=== PATIENT | male | born 1990 | race Hispanic/Latino ===

== ENCOUNTER 2022-07-30 11:32 | Emergency (ER) | payer OTHER, SELFPAY ==
--- NOTE | ~2022-07-30 | CT_ITS ---
EXAMINATION: CT abdomen pelvis w con INDICATION: Upper abdominal pain and vomiting TECHNIQUE: Computed tomographic images of the abdomen and pelvis were obtained after the administrati on of 100 cc of Omnipaque 350 intravenous contrast. The dose-length product (DLP) was 354.04 mGy-cm. Automated exposure control and iterative reconstruction technique were employed. COMPARISON: None available FINDINGS: The lung bases are clear. The heart size is normal. The liver, spleen, gallbladder, and adr enal glands are normal. Punctate calcification in the tail of the pancreas is consistent with chronic pancreatitis. The left kidney is unremarkable. A 4 mm hypoattenuating lesion of the left kidney is t oo small to characterize but likely represents a cyst. No pathologically enlarged abdominal or pelvic lymph nodes are identified. There is no free intraperitoneal gas or evidence of bowel obstruction. T he appendix is normal. IMPRESSION: 1. No CT correlate for the patient's symptoms. Reviewed, dictated and finalized at location B.
[2022-07-30 11:39] VITALS: BP 143/101; PULSE 84; RESP 16; TEMP 36.9; O2SAT 99
--- NOTE | 2022-07-30 11:45 | ED.NAVMDI ---
HPI - Nausea/Vomiting/Diarrhea General Chief complaint: Nausea/Vomiting/Diarrhea Stated complaint: Vomiting for the past 48 hours Time Seen by Provider: 07/30/22 11:33 History of Present Illness HPI Narrative: 32-year-old male presents the emergency room for evaluation of upper abdominal pain that has been present for 2 days. Patient states that he has been experiencing multiple episodes of nonbilious nonbloody vomiting for 48 hours. Denies any radiating pain. Also admits to heavy alcohol use over the weekend. States he was running a fever with T-max of 90.8, even though his thermostat is old . Patient denies any diarrhea or constipation. Describes his abdominal pain as a throbbing sensation. Related Data Allergies Allergy/AdvReac Type Severity Reaction Status Date / Time No Known Allergies Allergy Verified 07/30/22 11:33 Review of Systems Review of Systems: CONSTITUTIONAL: Denies fever, chills, or sweats. EYES: Denies visual changes, redness, or discharge. ENT: Denies rhinorrhea, congestion, sore throat, or otalgia. CARDIOVASCULAR: Denies chest pain, palpitations, or edema. RESPIRATORY: Denies cough or dyspnea. GASTROINTESTINAL: Reports abdominal pain, nausea, vomiting GENITOURINARY: Denies dysuria or hematuria. SKIN: Denies rash or itching. MUSCULOSKELETAL: Denies back pain, joint pain, or myalgia. NEUROLOGIC: Denies headache, numbness, dizziness, or weakness. PSYCHIATRIC: Denies anxiety or depression. Exam Narrative: GENERAL: Well-appearing, well-nourished, no physical limitations, and in no acute distress. HEAD: Normocephalic, atraumatic. EYES: Conjunctivae normal, PERRLA and EOMI. CHEST: Clear to auscultation. No respiratory distress. No wheezes rales or rhonchi. HEART: Regular rate and rhythm. No murmur heard. Normal peripheral pulses. ABDOMEN: Soft, epigastric and periumbilical tenderness, nondistended, normal active bowel sounds. BACK: No CVA tenderness EXTREMITIES: Normal range of motion. No edema. No clubbing or cyanosis SKIN: Warm, dry, no rash. No noted wounds NEURO: No focal deficits. Alert and oriented x3. MAEW. CN's II-XI intact bilaterally, normal gait PSYCH: Cooperative. Normal mood and affect. Course Vital Signs Vital signs: Vital Signs Temperature 36.9 C 07/30/22 11:39 Pulse Rate 84 07/30/22 11:39 Respiratory Rate 16 07/30/22 11:39 Blood Pressure 143/101 H 07/30/22 11:39 Pulse Oximetry 99 07/30/22 11:39 Oxygen Delivery Room Air 07/30/22 11:39 Temperature 36.9 C 07/30/22 11:39 Pulse Rate 84 07/30/22 11:39 Respiratory Rate 16 07/30/22 11:39 Blood Pressure 143/101 H 07/30/22 11:39 Pulse Oximetry 99 07/30/22 11:39 Oxygen Delivery Room Air 07/30/22 11:39 MDM - Nausea/Vomiting/Diarrhea Lab Data Result diagrams: 07/30/22 11:50 07/30/22 11:50 Labs: Lab Results 07/30/22 07/30/22 Range/Units 11:50 11:50 WBC 13.6 H (4.5-10.0) K/mm3 RBC 4.84 (4.6-6.20) M/mm3 Hgb 16.2 (14.0-18.0) g/dL Hct 45.8 (42.0-52.0) % MCV 94.6 (80-100) fl MCH 33.5 (26-34) pg MCHC 35.4 (32-36) g/dl RDW 11.9 (11.5-14.5) % Plt Count 298 (150-375) k/mm3 MPV 10.1 (7.4-10.4) fl Immature Gran % (Auto) 0.4 (0-0.5) % Neut % (Auto) 90.2 H (45.5-73.1) % Lymph % (Auto) 6.5 L (18.3-44.2) % [place] % (Auto) 2.7 (2.6-8.5) % Eos % (Auto) 0.0 (0-4.4) % Baso % (Auto) 0.2 (0.2-1.2) % Lymph # (Auto) 0.88 L (0.9-3.2) K/mm3 [place] # (Auto) 0.4 (0.1-0.6) K/mm3 Eos # (Auto) 0.0 (0-0.3) K/mm3 Baso # (Auto) 0.0 (0.0-0.1) K/mm3 Abs Immat Gran (auto) 0.06 H (0.00-0.031) K/mm3 Absolute Neuts (auto) 12.3 H (1.3-6.7) K/mm3 Absolute Nucleated RBC 0.0 (0.0-0.012) K/mm3 Nucleated RBC % 0.0 (0.0-0.2) % Sodium 139 (137-145) mmol/L Potassium 4.1 (3.4-5.0) mmol/L Chloride 93 L (98-107) mmol/L Carbon Dioxide 30 (22-30) mmol/L Anion Gap 16 (8-16) mmol/L BUN 16 (9-20
[2022-07-30] MEDS: SODIUM CHLORIDE 0.9% IV 1,000 ML 999 ML IV CONT ×2 (11:56→13:38)
[2022-07-30] MEDS: PANTOPRAZOLE SODIUM IV 40 MG VIAL IV PUSH (11:57)
[2022-07-30] MEDS: ONDANSETRON INJ 4 MG/2 ML VIAL IV PUSH (11:57)
[2022-07-30 12:06] LABS: Basophils Percent Auto 0.2 % (0.2-1.2); Hematocrit 45.8 % (42.0-52.0); Hemoglobin 16.2 g/dL (14.0-18.0); Immature Granulocyte Absolute 0.06 K/mm3 (0.00-0.031); Immature Granulocyte Percent A 0.4 % (0-0.5); Lymphocytes Absolute Auto 0.88 K/mm3 (0.9-3.2); Lymphocytes Percent Auto 6.5 % (18.3-44.2); Mean Corpuscular HGB Conc 35.4 g/dl (32-36); Mean Corpuscular Hemoglobin 33.5 pg (26-34); Mean Corpuscular Volume 94.6 fl (80-100); Mean Platelet Volume 10.1 fl (7.4-10.4); Monocytes Absolute Auto 0.4 K/mm3 (0.1-0.6); Monocytes Percent Auto 2.7 % (2.6-8.5); Neutrophils Absolute Auto 12.3 K/mm3 (1.3-6.7); Neutrophils Percent Auto 90.2 % (45.5-73.1); Platelet Count Result 298 k/mm3 (150-375); Red Blood Count 4.84 M/mm3 (4.6-6.20); Red Cell Distribution Width 11.9 % (11.5-14.5); White Blood Count 13.6 K/mm3 (4.5-10.0)
[2022-07-30 12:19] LABS: Alanine Aminotransferase 56 U/L (6-50); Albumin Level 5.5 g/dL (3.5-5.1); Alkaline Phosphatase 73 U/L (38-126); Anion Gap 16 mmol/L (8-16); Aspartate Amino Transferase 114 U/L (17-59); Bilirubin,Total 1.3 mg/dL (0.2-1.3); Blood Urea Nitrogen 16 mg/dL (9-20); Calcium 10.3 mg/dL (8.4-10.2); Carbon Dioxide 30 mmol/L (22-30); Chloride 93 mmol/L (98-107); Estimated CRCL calculation 95 ml/min; Estimated Glomerular Filt Rate > 60; Glucose 124 mg/dL (65-110); Lipase 39 U/L (23-300); Potassium 4.1 mmol/L (3.4-5.0); Sodium 139 mmol/L (137-145)
[2022-07-30] MEDS: diphenhydrAMINE HCl INJ 50 MG/ML VIAL 25 MG IV PUSH (12:57)
[2022-07-30] MEDS: METOCLOPRAMIDE HCL INJ 10 MG/2 ML VIAL IV PUSH (12:57)
[2022-07-30 14:44] VITALS: BP 142/88; PULSE 86; RESP 16; O2SAT 99
--- NOTE | 2022-08-04 11:49 | PC.NURSE ---
LATE ENTRY This note is being entered to document information to the patient's record. The following information was omitted on [07/30/22], by [cedrick lucas]. NS ended [id number]
== END 2022-07-30 14:44 | disposition home or self-care (01) ==
PROVIDERS: Emergency Provider Nurse Practitioner Family
DX: K29.70 Gastritis, unspecified, without bleeding (principal); R74.01 Elevation of levels of liver transaminase levels
CPT/HCPCS: 36415; 74177; 80053; 83690; 85025; 96361; 96374; 96375; 99284; C9113; J1200; J2405; J2765; J7030; Q9967

== ENCOUNTER 2022-12-12 11:21 | Emergency (ER) | payer OTHER, SELFPAY ==
[2022-12-12 11:32] VITALS: BP 132/78; BP 132/89; PULSE 60; PULSE 70; RESP 17; RESP 18; TEMP 36.8; O2SAT 98
[2022-12-12] MEDS: SODIUM CHLORIDE 0.9% IV 1,000 ML 999 ML IV CONT ×2 (11:44→13:42)
[2022-12-12] MEDS: ONDANSETRON INJ 4 MG/2 ML VIAL IV PUSH (11:45)
[2022-12-12 11:49] LABS: Basophils Percent Auto 0.3 % (0.2-1.2); Hematocrit 45.1 % (42.0-52.0); Immature Granulocyte Absolute 0.05 K/mm3 (0.00-0.031); Immature Granulocyte Percent A 0.5 % (0-0.5); Lymphocytes Absolute Auto 0.73 K/mm3 (0.9-3.2); Lymphocytes Percent Auto 6.8 % (18.3-44.2); Mean Corpuscular HGB Conc 35.5 g/dl (32-36); Mean Corpuscular Hemoglobin 32.7 pg (26-34); Mean Corpuscular Volume 92.2 fl (80-100); Mean Platelet Volume 10.3 fl (7.4-10.4); Monocytes Absolute Auto 0.3 K/mm3 (0.1-0.6); Monocytes Percent Auto 2.5 % (2.6-8.5); Neutrophils Absolute Auto 9.7 K/mm3 (1.3-6.7); Neutrophils Percent Auto 89.9 % (45.5-73.1); Platelet Count Result 280 k/mm3 (150-375); Red Blood Count 4.89 M/mm3 (4.6-6.20); Red Cell Distribution Width 11.9 % (11.5-14.5); White Blood Count 10.8 K/mm3 (4.5-10.0)
[2022-12-12 12:08] LABS: Alanine Aminotransferase 27 U/L (6-50); Albumin Level 5.6 g/dL (3.5-5.1); Alkaline Phosphatase 85 U/L (38-126); Anion Gap 12 mmol/L (8-16); Aspartate Amino Transferase 36 U/L (17-59); Bilirubin,Total 1.1 mg/dL (0.2-1.3); Blood Urea Nitrogen 16 mg/dL (9-20); Carbon Dioxide 26 mmol/L (22-30); Chloride 95 mmol/L (98-107); Estimated CRCL calculation 102 ml/min; Estimated Glomerular Filt Rate > 60; Glucose 119 mg/dL (65-110); Lipase 47 U/L (23-300); Sodium 133 mmol/L (137-145)
[2022-12-12 12:31] VITALS: BP 137/98; PULSE 72; RESP 18; O2SAT 97
--- NOTE | 2022-12-12 12:33 | ED.NAVMDI ---
HPI - Nausea/Vomiting/Diarrhea General Chief complaint: Nausea/Vomiting/Diarrhea Stated complaint: abd pain Time Seen by Provider: 12/12/22 11:23 History of Present Illness HPI Narrative: Patient is a 32-year-old male who presents ER with nausea and vomiting. Ongoing for last 2 days. Associate with abdominal cramping. Concerned it may be related pancreatitis disease had that previously. Reports last weekend he had a few alcoholic beverages none over the last couple days. No fevers or chills or sweats. No diarrhea. No alleviating factors that is found. Related Data Allergies Allergy/AdvReac Type Severity Reaction Status Date / Time No Known Allergies Allergy Verified 07/30/22 11:33 Review of Systems Review of Systems: All systems reviewed & are unremarkable except as noted in HPI and below Constitutional: Constitutional: Denies chills, Denies fatigue and Denies fever(s) ENT: Denies nasal congestion and Denies sore throat Cardiovascular: Cardiovascular: Denies chest pain, Denies rapid heart rate and Denies radiating jaw, neck or arm pain Respiratory: Respiratory: Denies cough and Denies dyspnea Gastrointestinal: Gastrointestinal: Reports abdominal pain, Denies diarrhea, Reports nausea and Reports vomiting Genitourinary: Genitourinary: Denies oliguria, Denies dysuria and Denies urinary frequency PMFSH Past Medical History Medical History (Updated 12/12/22 @ 14:01 by Fabiano Claros MD) Pancreatitis Surgical History Surgical History (Updated 12/12/22 @ 12:33 by Fabiano Claros MD) No history of previous surgery Social History Social History (Updated 12/12/22 @ 12:34 by Fabiano Claros MD) Alcohol use details: occassional Exam Narrative: GENERAL: Uncomfortable-appearing, well-nourished, and in no acute distress. HEAD: Normocephalic, atraumatic. ENT: Mucous membranes moist. CHEST: Clear to auscultation. No respiratory distress. HEART: Regular rate and rhythm. Normal peripheral pulses. ABDOMEN: Soft, nontender, nondistended. EXTREMITIES: Normal range of motion. No edema. SKIN: Warm, dry, no rash. NEURO: Alert and oriented x3. PSYCH: Normal mood and affect. Course Course Emergency Course: Abdomen soft/nontender. Patient received fluids/zofran/phenergan. Electrolytes reassuring, no renal failure. White count only 10.8 and felt to be related to emesis. Discharge home with supportive therapy. Discussed treatment plan with patient. Vital Signs Vital signs: Vital Signs Temperature 98.3 F 12/12/22 11:32 Pulse Rate 60 12/12/22 11:32 Respiratory Rate 18 12/12/22 11:32 Blood Pressure 132/89 12/12/22 11:32 Pulse Oximetry 98 12/12/22 11:32 Oxygen Delivery Room Air 12/12/22 11:32 Temperature 98.3 F 12/12/22 11:32 Pulse Rate 74 12/12/22 13:45 Respiratory Rate 13 12/12/22 13:45 Blood Pressure 136/99 H 12/12/22 13:45 Pulse Oximetry 99 12/12/22 13:45 Oxygen Delivery Room Air 12/12/22 11:32 MDM - Nausea/Vomiting/Diarrhea Lab Data 12/12/22 11:36 12/12/22 11:36 Labs: Lab Results 12/12/22 12/12/22 Range/Units 11:36 11:36 WBC 10.8 H (4.5-10.0) K/mm3 RBC 4.89 (4.6-6.20) M/mm3 Hgb 16.0 (14.0-18.0) g/dL Hct 45.1 (42.0-52.0) % MCV 92.2 (80-100) fl MCH 32.7 (26-34) pg MCHC 35.5 (32-36) g/dl RDW 11.9 (11.5-14.5) % Plt Count 280 (150-375) k/mm3 MPV 10.3 (7.4-10.4) fl Immature Gran % (Auto) 0.5 (0-0.5) % Neut % (Auto) 89.9 H (45.5-73.1) % Lymph % (Auto) 6.8 L (18.3-44.2) % [place] % (Auto) 2.5 L (2.6-8.5) % Eos % (Auto) 0.0 (0-4.4) % Baso % (Auto) 0.3 (0.2-1.2) % Lymph # (Auto) 0.73 L (0.9-3.2) K/mm3 [place] # (Auto) 0.3 (0.1-0.6) K/mm3 Eos # (Auto) 0.0 (0-0.3) K/mm3 Baso # (Auto) 0.0 (0.0-0.1) K/mm3 Abs Immat Gran (auto) 0.05 H (0.00-0.031) K/mm3 Absolute Neuts (auto) 9.7 H (1.3-6.7) K/mm3 Absolute Nucleated RBC 0.0 (0.0-0.012)
[2022-12-12 12:46] VITALS: BP 137/68; PULSE 67; RESP 20; O2SAT 97
[2022-12-12 13:01] VITALS: BP 123/76; PULSE 63; RESP 18; O2SAT 97
[2022-12-12] MEDS: PROMETHAZINE HCL 25 MG/ML AMPUL 12.5 MG IV PUSH (13:42)
[2022-12-12 13:45] VITALS: BP 136/99; PULSE 74; RESP 13; O2SAT 99
[2022-12-12 15:15] VITALS: BP 147/92; PULSE 81; RESP 18; O2SAT 100
== END 2022-12-12 15:16 | disposition home or self-care (01) ==
PROVIDERS: Emergency Provider Emergency Medicine
DX: R11.2 Nausea with vomiting, unspecified (principal)
CPT/HCPCS: 36415; 80053; 83690; 85025; 96360; 96361; 96374; 96375; 99284; J2405; J2550; J7030

== ENCOUNTER 2024-04-23 16:15 | Emergency (ER) | payer OTHER, SELFPAY ==
--- NOTE | ~2024-04-23 | US_ITS ---
EXAMINATION: US abdomen limited DATE: 04/23/2024 20:12 INDICATION: RUQ abdominal pain TECHNIQUE: Multiple grayscale and Doppler ultrasound images of limited portions of the abdomen were o btained. COMPARISON: CT abdomen pelvis 07/30/2022. FINDINGS: The pancreas is poorly visualized. The liver is normal with normal echogenicity and echotex ture. No surface nodularity. Normal hepatopetal flow in the main portal vein. The gallbladder is norm al with no abnormal wall thickening, pericholecystic fluid or stones. The common bile duct measures 4 mm. There was no sonographic Ortega sign. IMPRESSION: Poor visualization of the pancreas. Otherwise normal right upper quadrant ultrasound findings. Reviewed, dictated and finalized at location K. IMPRESSION: Poor visualization of the pancreas. Otherwise normal right upper quadrant ultra sound findings.
--- NOTE | ~2024-04-23 | CT_ITS ---
EXAMINATION: CT abdomen pelvis w con DATE: 04/23/2024 20:58 INDICATION: right sided abdominal pain TECHNIQUE: Computed tomography (CT) of the abdomen and pelvis was performed with 100 mL Omnipaque-350 intravenous contrast. Automated exposure control and iterative reconstruction technique were employe d. The dose-length product was 308.92 mGy-cm. COMPARISON: 07/30/2022. FINDINGS: Lower thorax: Unremarkable Liver: Normal. Biliary/Gallbladder: Gallbladder is normal. No bile duct dilation. Pancreas: No mass or duct dilation. Punctate calcification in the pancreatic tail. Spleen: Normal. Adrenals:No mass. Kidneys: No suspicious mass, obstructing stone, or hydronephrosis. Subcentimeter left lower pole lesi on, likely cyst. GI tract: No small or large bowel dilation. Short segment pericecal inflammatory change. Multiple cec al diverticula, including several that appear to be inflamed. Normal appendix. Mesentery/Peritoneum: No ascites, mass, or free air. Retroperitoneum: No mass. Pelvis: Pelvic organs are within normal limits. Soft Tissues: Soft tissues and body wall unremarkable. Bones: No acute osseous finding. IMPRESSION: Acute uncomplicated cecal diverticulitis. Reviewed, dictated and finalized at location K.
[2024-04-23 16:36] VITALS: BP 118/74; PULSE 86; RESP 20; TEMP 36.9; O2SAT 100
--- NOTE | 2024-04-23 16:36 | ED.ABDPAIN ---
HPI - Abdominal Pain General Chief Complaint: Abdominal Pain <Yesi Vazquez PA-C - Last Filed: 04/24/24 10:04> Stated Complaint: R abd pain <Yesi Vazquez PA-C - Last Filed: 04/24/24 10:04> Time Seen by Provider: 04/23/24 16:36 <Yesi Vazquez PA-C - Last Filed: 04/24/24 10:04> Focused HPI: This is a 33 year old male that presents to the ER for abdominal pain. Reports right sided upper abdominal pain that is sharp in nature. Has been fairly constant the last couple of days. Took Ibuprofen with little relief. Denies fever, vomiting, diarrhea, dysuria or hematuria. GENERAL: Well-appearing, well-nourished, and in no acute distress. HEAD: Normocephalic, atraumatic. CHEST: Clear to auscultation. ?No respiratory distress. HEART: Regular rate and rhythm.? NEURO: ?Alert and oriented x3. Patient screened in triage and initial orders placed.? ?Additional care and disposition to be based upon?diagnostic testing and treatment. <Yesi Vazquez PA-C - Last Filed: 04/24/24 10:04> History of Present Illness HPI narrative: Patient is a healthy 33-year-old male here with right upper quadrant abdominal pain that is been constant since yesterday morning. He notes 1 here Tuesday evening and the next morning woke up with significant right upper quadrant pain. He states the pain radiates into his epigastric region. He denies any associated nausea, vomiting, diarrhea, fever, chills. He did eat throughout the day yesterday, did not notice any change in his symptoms with pain. He has not eaten anything today and does believe that the pain may have worsened since then. He has no prior abdominal surgeries, takes no medications on a daily basis. He denies being a regular drinker. He does note that in the past he has been a heavy marijuana user, had had issues with nausea and vomiting and now not used in several months and no longer has these issues. No cough or congestion. <Ysabel Gipson MD - Last Filed: 04/23/24 21:32> Related Data Allergies/Adverse Reactions: Allergies Allergy/AdvReac Type Severity Reaction Status Date / Time No Known Allergies Allergy Verified 04/23/24 16:41 <Yesi Vazquez PA-C - Last Filed: 04/24/24 10:04> Review of Systems Review of Systems: All systems reviewed & are unremarkable except as noted in HPI and below <Ysabel Gipson MD - Last Filed: 04/23/24 21:32> [facility] Past Medical History Medical History: Medical History (Updated 04/24/24 @ 00:00 by Karishma Arteaga) Pancreatitis <Yesi Vazquez PA-C - Last Filed: 04/24/24 10:04> Surgical History Surgical History: Surgical History (Updated 12/12/22 @ 12:33 by Fabiano Claros MD) No history of previous surgery <Yesi Vazquez PA-C - Last Filed: 04/24/24 10:04> Social History Social History: Social History (Updated 12/12/22 @ 12:34 by Fabiano Claros MD) Alcohol use details: occassional <Yesi Vazquez PA-C - Last Filed: 04/24/24 10:04> Exam Narrative: GENERAL: Well-appearing, well-nourished, and in no acute distress. HEAD: Normocephalic, atraumatic. EYES: PERRLA and EOMI. ENT: Nares clear. Mucous membranes moist. NECK: Supple. CHEST: Clear to auscultation. No respiratory distress. HEART: Regular rate and rhythm. Normal peripheral pulses. ABDOMEN: Soft, right upper quadrant tenderness, positive Ortega sign, no rebound or guarding. Right CVA tenderness, no left CVA tenderness., nondistended. EXTREMITIES: Normal range of motion. No edema. SKIN: Warm, dry, no rash. NEURO: No focal deficits. Alert and oriented x3. PSYCH: Normal mood and affect. <Ysabel Gipson MD - Last Filed: 04/23/24 21:32> Course Course Emergency Course: MSE performed in triage. Patient is here for right upper abdominal pain since Tuesday. Vitals normal. Lab work shows white blood cell count of 13.1, electrolytes grossly normal. Mild elevation in bilirubin. Lipase normal. Patient seen evaluated
[2024-04-23 18:08] LABS: Basophils Percent Auto 0.2 % (0.2-1.2); Eosinophils Absolute Auto 0.1 K/mm3 (0-0.3); Eosinophils Percent Auto 0.6 % (0-4.4); Hematocrit 45.2 % (42.0-52.0); Hemoglobin 15.7 g/dL (14.0-18.0); Immature Granulocyte Absolute 0.05 K/mm3 (0.00-0.031); Immature Granulocyte Percent A 0.4 % (0-0.5); Lymphocytes Absolute Auto 1.49 K/mm3 (0.9-3.2); Lymphocytes Percent Auto 11.3 % (18.3-44.2); Mean Corpuscular HGB Conc 34.7 g/dl (32-36); Mean Corpuscular Hemoglobin 32.9 pg (26-34); Mean Corpuscular Volume 94.8 fl (80-100); Mean Platelet Volume 10.1 fl (7.4-10.4); Monocytes Absolute Auto 0.9 K/mm3 (0.1-0.6); Monocytes Percent Auto 7.1 % (2.6-8.5); Neutrophils Absolute Auto 10.6 K/mm3 (1.3-6.7); Neutrophils Percent Auto 80.4 % (45.5-73.1); Platelet Count Result 265 k/mm3 (150-375); Red Blood Count 4.77 M/mm3 (4.6-6.20); Red Cell Distribution Width 12.3 % (11.5-14.5); White Blood Count 13.1 K/mm3 (4.5-10.0)
[2024-04-23 18:10] LABS: Appearance Urine Clear (Clear); Bilirubin Urine Negative (Negative); Blood Urine Negative (Negative); Color Urine Yellow (Yellow); Glucose Urine UA Negative (Negative); Ketones Urine 1+ mg/dL (Negative); Leukocyte Esterase Ur Negative LEU/UL (Negative); Nitrate Urine Negative (Negative); Protein Urine Negative (Negative); Specific Grav Ur 1.009 (1.001-1.035); Urobilinogen Urine 0.2 mg/dL (<2.0)
[2024-04-23 18:16] LABS: Add Urine Microscopic? NO
[2024-04-23 18:17] LABS: Alanine Aminotransferase 23 U/L (6-50); Albumin Level 5.2 g/dL (3.5-5.1); Alkaline Phosphatase 103 U/L (38-126); Anion Gap 13 mmol/L (4-12); Aspartate Amino Transferase 25 U/L (17-59); Bilirubin,Total 1.4 mg/dL (0.2-1.3); Blood Urea Nitrogen 9 mg/dL (9-20); Carbon Dioxide 29 mmol/L (22-30); Chloride 97 mmol/L (98-107); Estimated CRCL calculation 113 ml/min; Estimated Glomerular Filt Rate > 60; Glucose 82 mg/dL (65-110); Lipase 34 U/L (23-300); Potassium 3.9 mmol/L (3.4-5.0); Sodium 139 mmol/L (137-145)
[2024-04-23 18:46] VITALS: BP 120/81; PULSE 78; RESP 16; O2SAT 98
[2024-04-23 19:03] VITALS: BP 121/75; PULSE 9; RESP 16; O2SAT 98
[2024-04-23 19:21] VITALS: BP 120/76; PULSE 89; RESP 17; O2SAT 97
[2024-04-23] MEDS: PANTOPRAZOLE SODIUM IV 40 MG VIAL IV PUSH (20:16)
[2024-04-23] MEDS: AMOXICILLIN/CLAVULANATE K 875-125 MG TAB 1 TABLET PO (21:49)
== END 2024-04-23 21:50 | disposition home or self-care (01) ==
PROVIDERS: Physician Assistant; Emergency Provider Student in an Organized Health Care Education/Training Program
DX: K57.32 Diverticulitis of large intestine without perforation or abscess without bleeding (principal)
CPT/HCPCS: 36415; 74177; 76705; 80053; 81003; 83690; 85025; 96374; 99284; A9270; J2470; Q9967